=== PATIENT | female | born 1930 | race Caucasian/White ===

== ENCOUNTER 2017-05-14 15:22 | Emergency (ER) | payer MEDICARE ==
[~2017-05-14] VITALS: Ht 152.4 cm; Wt 50.0 kg
[~2017-05-14 15:22] MED LIST: ADULT ASA81 MG OR; CRESTOR20 MG OR; ESTROGENS XX; FUROSEMIDE40 MG PO; HYDROXYZINE HCL25 M1 PO; LASIX40 MG OR; LEVOTHYROXIN100 MCG PO; LEVOTHYROXIN75 MCG PO; LOPRESSOR OR; LOPRESSOR50 M1 PO; MEVACOR20 MG OR; POT CHLORIDE20 ME3 PO; POTASSIUM25 MEQ OR; PRAVASTATIN80 MG PO; PRILOSEC40 MG PO; SYNTHROID100 MCG OR
[2017-05-14] MEDS ORDERED: ASPIRIN EC325 MG PO (15:47)
[2017-05-14] MEDS ORDERED: MINIVELLE0.05 MG/24 TOP (15:51)
[2017-05-14 15:58] LABS: HEMATOCRIT 35.5 % (37.0-47.0); HEMOGLOBIN 11.3 g/dl (12.0-16.0); IMMATURE GRANULOCYTES 0.3 % (0.0-1.0); MEAN CELL VOLUME 97.8 fL CALC (80.0-100.0); MEAN CORPUSCULAR HGB 31.1 pG CALC (26.0-32.0); MEAN CORPUSCULAR HGB CONC 31.8 g/L CALC (32.0-36.0); NEUT# 5.44 thou/uL (2.00-7.15); RED BLOOD COUNT 3.63 mill/uL (4.20-5.60); RED CELL DISTRI WIDTH 14.6 % (11.5-15.5)
[2017-05-14 16:24] LABS: ALBUMIN 4.1 g/dL (3.2-5.0); BILIRUBIN, TOTAL 0.4 mg/dL (0.0-1.4); TOTAL PROTEIN 7.6 g/dL (6.3-8.2)
[2017-05-14 16:35] LABS: CREATININE 2.3 mg/dL (0.5-1.0)
[2017-05-14 16:55] LABS: TSH, 3RD GENERATION 6.49 uIU/mL (0.47 - 4.68)
[2017-05-14 19:26] VITALS: BP 169/63
== END 2017-05-14 19:19 | disposition short-term general hospital (02) ==
LOC: ED 15:22
PROVIDERS: Family Medicine
DX: R00.1 Bradycardia, unspecified (principal); I10 Essential (primary) hypertension; I25.10 Atherosclerotic heart disease of native coronary artery without angina pectoris; I48.91 Unspecified atrial fibrillation; Z95.1 Presence of aortocoronary bypass graft; R06.02 Shortness of breath